=== PATIENT | male | born 1955 | race Caucasian/White ===

== ENCOUNTER 2019-12-20 17:24 | Inpatient (IN) | payer MEDICAID ==
[~2019-12-20] VITALS: Ht 170.2 cm; Wt 65.0 kg
[2019-12-20] MEDS ORDERED: FOLIC ACID1 MG PO (17:33)
[2019-12-20] MEDS ORDERED: TREXALL15 MG (17:33)
[2019-12-20] MEDS ORDERED: HYDROXYCHLOROQ200 MG PO (17:34)
[2019-12-20] MEDS ORDERED: LISINOPRIL-HCT1 EAC7 PO (17:34)
[2019-12-20] MEDS ORDERED: LEVO-T50 MCG PO (17:34)
[2019-12-20 17:45] VITALS: BP 116/62
[2019-12-20 18:05] LABS: BASOPHILS 0.1 % (0-2); EOSINOPHILS 1.8 % (0-7); HEMOGLOBIN 13.5 g/dL (13.5-17.5); IMMATURE GRANULOCYTES 0.3 % (0-5); LYMPHOCYTES 24.6 % (15-50); MCH 30.1 pg (26.0-34.0); MCHC 33.8 g/dL (31.0-37.0); MCV 89.1 fL (80.0-100.0); MEAN PLATELET VOLUME 9.2 fL (7.4-10.4); MONOCYTES 14.3 % (2-11); NEUTROPHILS 58.9 % (40-80); PLATELET COUNT 416 10x3/uL (130-400); RBC 4.49 10x6/uL (4.20-6.10); RDW 15.6 % (11.5-14.5); WBC 7.3 10x3/uL (4.8-10.8)
[2019-12-20 18:13] LABS: APTT 26.6 SECONDS (22.8-39.4); CALC OSMOLALITY 270 mosm/kg (275-300); CALCIUM 8.8 mg/dL (8.5-10.1); CARBON DIOXIDE 29.6 mmol/L (21.0-32.0); CHLORIDE - SERUM 101 mmol/L (98-107); CREATININE - SERUM 0.9 mg/dL (0.6-1.3); GLUCOSE 79 mg/dL (74-106); INR 0.9 (0.85-1.17); POTASSIUM - SERUM 3.8 mmol/L (3.5-5.1); PROTIME 12.2 SECONDS (11.6-15.0); SODIUM 135 mmol/L (136-145); UREA NITROGEN 17 mg/dL (7-18); eGFR NON AFRICAN AMERICAN > 90 mL/min (90-120)
[2019-12-20 18:30] LABS: ALBUMIN 3.8 g/dL (3.4-5.0); ALKALINE PHOSPHATASE 82 U/L (30-120); ALT (SGPT) 21 U/L (10-68); BILIRUBIN - TOTAL 0.34 mg/dL (0.2-1.3); CKMB 0.9 U/L (0.0-3.6); CREATINE KINASE 75 UL (21-232); MAGNESIUM - SERUM 2.2 mg/dL (1.8-2.4); PROTEIN - SERUM 7.1 g/dL (6.4-8.2)
[2019-12-20 18:31] LABS: TROPONIN-I < 0.017 ng/mL (0.000-0.060)
--- NOTE | 2019-12-20 23:24 | NUR ---
PT RESTING IN BED WATCHING TV, NO DISTRESS OR COMPLIANTS VOICED AT THIS TIME
[2019-12-21] VITALS (10 sets, daily range): BP systolic 95–115; BP diastolic 62–76; Ht 170.2 cm; Wt 65.0 kg
[2019-12-21 00:58] LABS: CREATINE KINASE 63 UL (21-232)
[2019-12-21 00:59] LABS: TROPONIN-I < 0.017 ng/mL (0.000-0.060)
[2019-12-21 06:22] LABS: BASOPHILS 0.4 % (0-2); EOSINOPHILS 1.7 % (0-7); HEMOGLOBIN 13.5 g/dL (13.5-17.5); IMMATURE GRANULOCYTES 0.2 % (0-5); LYMPHOCYTES 20.1 % (15-50); MCH 30.1 pg (26.0-34.0); MCHC 33.8 g/dL (31.0-37.0); MCV 89.3 fL (80.0-100.0); MEAN PLATELET VOLUME 9.5 fL (7.4-10.4); MONOCYTES 10.5 % (2-11); NEUTROPHILS 67.1 % (40-80); PLATELET COUNT 414 10x3/uL (130-400); RBC 4.48 10x6/uL (4.20-6.10); RDW 15.5 % (11.5-14.5); WBC 8.3 10x3/uL (4.8-10.8)
--- NOTE | 2019-12-21 07:00 | NUR ---
ASSUMED CARE OF PT AT THIS TIME.
[2019-12-21 07:16] LABS: ALBUMIN 3.5 g/dL (3.4-5.0); ALKALINE PHOSPHATASE 76 U/L (30-120); ALT (SGPT) 20 U/L (10-68); BILIRUBIN - TOTAL 0.33 mg/dL (0.2-1.3); CALC OSMOLALITY 272 mosm/kg (275-300); CALCIUM 8.3 mg/dL (8.5-10.1); CARBON DIOXIDE 27.4 mmol/L (21.0-32.0); CHLORIDE - SERUM 103 mmol/L (98-107); CKMB 0.6 U/L (0.0-3.6); CREATINE KINASE 67 UL (21-232); CREATININE - SERUM 0.9 mg/dL (0.6-1.3); GLUCOSE 84 mg/dL (74-106); POTASSIUM - SERUM 3.7 mmol/L (3.5-5.1); PROTEIN - SERUM 6.5 g/dL (6.4-8.2); SODIUM 137 mmol/L (136-145); TROPONIN-I < 0.017 ng/mL (0.000-0.060); UREA NITROGEN 13 mg/dL (7-18); eGFR NON AFRICAN AMERICAN > 90 mL/min (90-120)
[2019-12-21 13:13] LABS: CKMB 1.1 U/L (0.0-3.6); CREATINE KINASE 76 UL (21-232); TROPONIN-I < 0.017 ng/mL (0.000-0.060)
--- NOTE | 2019-12-21 14:50 | NUR ---
TRANSFER FROM ER BY W/C. STEVENINTED TO ROOM. CALL LIGHT IN REACH. WILL CONT. PLAN OF CARE.
[2019-12-22] VITALS: BP 110/64
[2019-12-22 04:00] VITALS: BP 106/56
[2019-12-22 09:36] VITALS: BP 115/64
--- NOTE | 2019-12-22 13:38 | NUR ---
IV AND TELEMETRY DCD. DC PLANS GIVEN. UNDERSTANDING VOICED. ESCORTED TO CAR BY W/C.
--- NOTE | 2019-12-24 07:09 | MORECARE ---
CASE MANAGEMENT DISCHARGE SUMMARY PATIENT: JULIAN GREGORIO UNIT: [id number] ADM DATE: 12/21/19 AGE: 64 : 57 SEX: M ROOM/BED: D.2117 AUTHOR: KRYSTAL CORRALES PHYSICIAN: REFERRING PHYSICIAN: SARIAH ECHEVARRIA MD DATE OF SERVICE: 12/24/19 Discharge Plan Patient Name: JULIAN GREGORIO Facility: [facility]:[place] : 1955 Planned Disposition: Anticipated Discharge Date: Discharge Date: 12/22/2019 Expected LOS: 0 Initial Reviewer: [id number] Initial Review Date: 12/24/2019 Generated: 12/24/19 8:08 am Patient Name: JULIAN GREGORIO Page [id number] at 0709 All edits/amendments must be made on the electronic document DICTATION DATE: 12/24/19707 ELECTRICAL REPAIRER: EVAN 12/24/19 0708 RPT#: [id number] DC DATE:12/22/19 STATUS: DIS IN [address] [place] [address] END OF REPORT
== END 2019-12-22 13:39 | disposition home or self-care (01) | DRG 313 ==
LOC: D.ER 17:24 → D.EDHOLD 19:08 → OBSVTIME 12-21 07:00 → D.M2 12-21 14:20
PROVIDERS: Family Medicine; ADMIT Family Medicine Adult Medicine; ATTEND Family Medicine Adult Medicine
DX: R07.9 Chest pain, unspecified (principal); E03.9 Hypothyroidism, unspecified; M06.9 Rheumatoid arthritis, unspecified; I10 Essential (primary) hypertension